=== PATIENT | male | born 1975 | race Caucasian/White ===

== ENCOUNTER → 2017-02-04 | Outpatient (CLI) | payer MEDICARE ==
[~2017-02-04] VITALS: Ht 190.5 cm; Wt 81.0 kg
[~2017-02-04] MED LIST: ATARAX 25MG25 MG/TAB PO; CEFAZOLIN1 G1 IV; CELEXA40 MG PO; DESYREL 100MG100 MG PO; DESYREL 50MG50 MG PO; FLEXERIL 1010 MG/TAB PO; HYDROMORPHONE HY8 MG PO; MELATIN 3 MG-11 TAB PO; MS CONTIN 660 MG/TAB PO; NAPROSYN 2250 MG/TAB PO; NEURONTIN300 MG/CAP PO; PERCOCET 325 MG1 TAB PO; PROTONIX 40MG T40 MG PO; TYLENOL 325MG325 MG PO
[2017-02-04 10:00] VITALS: BP 107/76; PULSE 93; TEMP 98.2
== END ==
LOC: EUO 08:58
DX: J98.4 Other disorders of lung (principal)
CPT/HCPCS: C1751; C1894

== ENCOUNTER → 2017-02-13 | Outpatient (REF) | LOC: ZAIV 06:00 | DX: Z01.89 Encounter for other specified special examinations (principal) ==

== ENCOUNTER → 2017-03-31 | Outpatient (REF) | LOC: ZLAB.WCH 09:43 | DX: Z01.89 Encounter for other specified special examinations (principal) ==

== ENCOUNTER → 2017-04-01 | Outpatient (REF) | LOC: ZLAB.WCH 10:17 | DX: Z01.89 Encounter for other specified special examinations (principal) ==

== ENCOUNTER → 2017-04-12 | Outpatient (REF) | LOC: ZLAB.WCH 10:29 | DX: Z01.89 Encounter for other specified special examinations (principal) ==

== ENCOUNTER → 2017-04-29 | Outpatient (REF) | LOC: ZLAB.WCH 09:04 | DX: Z01.89 Encounter for other specified special examinations (principal) ==

== ENCOUNTER → 2017-05-08 | Outpatient (REF) | LOC: ZLAB.WCH 08:48 | DX: Z02.89 Encounter for other administrative examinations (principal) ==